=== PATIENT | male | born 1990 | race Caucasian/White ===

== ENCOUNTER 2020-11-30 02:31 | Outpatient (CLI) | payer BC, SELFPAY ==
[2020-12-01 13:15] LABS: COVID-19 RT-PCR UVMMC Result Negative (Negative)
== END 2020-11-30 02:51 ==
PROVIDERS: PCP Family Medicine; Visit Provider Nurse Practitioner
DX: Z20.822 Contact with and (suspected) exposure to COVID-19 (principal)
CPT/HCPCS: U0003

== ENCOUNTER 2022-11-28 09:03 | Emergency (ER) | payer BC, SELFPAY ==
[2022-11-28] VITALS (19 sets, daily range): BP systolic 121–147; BP diastolic 71–90; PULSE 62–88; RESP 13–20; TEMP 36.6–37.2; O2SAT 93–99
--- NOTE | 2022-11-28 09:00 | RT.EKG_ITS ---
APPROVED REPORT Exam: Resting ECG Reason for Exam: chest pain Patient Location: E HR:72 bpm ECG Measurements Heart Rate 72 AXIS DC 141 P 73 QRSd 86 QRS 68 QT 375 T 50 QTc 409 Conclusion Sinus rhythm...normal P axis, V-rate 60- 99
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
[2022-11-28 09:31] LABS: Abs Immature Grans 0.07 10^3/uL (0.0-0.06); Absolute Basophil Count 0.04 10^3/uL (0.0-0.2); Absolute Eosinophil Count 0.31 10^3/uL (0.0-0.7); Absolute Neutrophil Count 10.54 10^3/uL (1.2-6.7); Basophils % 0.3; Eosinophils % 2.2; HCT 45.9 % (40.0-50.0); HGB 15.6 g/dL (13.5-17.5); Immature Grans % 0.5; Lymphocytes % 16.2; MCH 30.5 pg (27.0-33.0); MCV 90 fL (80-95); MPV 8.5 fL (8.0-11.0); Monocytes % 6.4; Neutrophils % 74.4; Platelet Count 355 10^3/uL (130-400); RBC 5.12 10^6/uL (4.36-5.78); RDW 11.5 % (11.8-14.1); RDW-SD 37.9 fL; WBC 14.16 10^3/uL (4.4-10.8)
[2022-11-28 09:35] LABS: Absolute Lymphocyte Count 2.29 10^3/uL (1.2-3.4); Absolute Monocyte Count 0.91 10^3/uL (0.1-0.8)
[2022-11-28] MEDS: Normal Saline - Diluent 50 ML VIAL IJ (09:36)
[2022-11-28] MEDS: Omnipaque 350 MG/ML 500 ML BTL-Imaging package IJ (09:36)
[2022-11-28 09:50] LABS: ALT 74 U/L (16-63); AST 57 U/L (15-37); Albumin 4.2 g/dL (3.4-5.0); Alkaline Phosphatase 67 U/L (46-116); BUN 17 mg/dL (7-18); Bilirubin, Total 0.4 mg/dL (0.2-1.0); CREATININE 1.1 mg/dL (0.70-1.30); Calcium 9.2 mg/dL (8.5-10.1); Chloride 102 mmol/L (98-107); Estimated GFR 92.61 (mL/min/1.73m2); Glucose 118 mg/dL (74-106); Lipase 161 U/L (73-393); Potassium 4.3 mmol/L (3.5-5.1); Sodium 137 mmol/L (136-145); Troponin I < 50 ng/L (<or=60)
[2022-11-28] MEDS: Acetaminophen 500 MG TAB 1000 MG PO (10:40)
== END 2022-11-28 10:53 | disposition home or self-care (01) ==
PROVIDERS: Emergency Provider Emergency Medicine
DX: S39.91XA Unspecified injury of abdomen, initial encounter (principal); S29.9XXA Unspecified injury of thorax, initial encounter; S80.812A Abrasion, left lower leg, initial encounter; R79.89 Other specified abnormal findings of blood chemistry; V43.52XA Car driver injured in collision with other type car in traffic accident, initial encounter; Y92.410 Unspecified street and highway as the place of occurrence of the external cause
CPT/HCPCS: 36415; 74177; 80053; 83690; 93005; 99285; 71260; 84484; 85025; 93010

== ENCOUNTER 2023-08-27 07:38 | Observation (INO) | payer BC, SELFPAY ==
[2023-08-27] VITALS (40 sets, daily range): BP systolic 108–147; BP diastolic 69–89; PULSE 82–127; RESP 2–29; TEMP 36.7–39.3; O2SAT 91–99
--- NOTE | 2023-08-27 07:45 | DI.RAD_ITS ---
Exam(s) XR CHEST 2V PA LATERAL EXAM: XR CHEST 2V PA LATERAL CLINICAL HISTORY: left lateral rib pain, TTP TECHNIQUE: 2D digital imaging was performed. COMPARISON: CT CT CHEST/ABD/PEL W from 11/28/2022 FINDINGS: HEART: Normal size. Aorta: Not dilated. PULMONARY VASCULATURE: Normal. LUNGS: Clear. PLEURAL SPACE: Moderate size left pleural effusion and adjacent atelectasis. Minimal blunting at the right costophrenic angle. No pneumothorax. BONE:Unremarkable for age. IMPRESSION: Moderate size left pleural effusion. DATA REPOSITORY: RADIATION DOSE DELIVERED:
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
[2023-08-27] MEDS: Acetaminophen 500 MG TAB 1000 MG PO (08:03)
[2023-08-27] MEDS: Cyclobenzaprine 10 MG TAB PO (08:04)
[2023-08-27] MEDS: Ketorolac 15 MG/ML VIAL IM (08:04)
[2023-08-27] MEDS: Lidocaine 5% Patch 2 PATCH TP (08:05)
--- NOTE | 2023-08-27 08:15 | DI.CT_ITS ---
Exam(s) CT CHEST/ABD/PEL W EXAM: CT CHEST/ABD/PEL W CLINICAL HISTORY: ? diaphragm rupture on left. TECHNIQUE: Imaging Protocol: Axial computed tomography images with coronal and sagittal reformatted images were created and reviewed CONTRAST MATERIAL: Intravenous: Omnipaque 350 Contrast volume:100 ml Oral: yes COMPARISON: CT CT CHEST/ABD/PEL W from 11/28/2022 CR XR CHEST 2V PA LATERAL from 08/27/2023 FINDINGS: CHEST: Tracheobronchial tree: Patent where visualized. Pulmonary parenchyma: Significant consolidation of left lower lobe with air bronchograms. Pleura: Small left pleural effusion. Lymph nodes: Within normal limits. Aorta: Thoracic portion non-dilated. Heart: Normal size. No pericardial effusion. Bones: Unremarkable for age. No lytic or blastic lesions.No compression fractures. No displaced rib fractures identified. Diaphragm is intact. ABDOMEN and PELVIS: Liver: Normal density. No measurable mass. Gallbladder and biliary tract: No evidence of stones or wall thickening. No biliary dilatation. Pancreas: Normal density, no abnormal calcifications or inflammatory process. Spleen: Normal. Kidneys: Normal size, contour and axis. No radiodense stones or obstructive uropathy. No suspicious m asses seen. Adrenal glands: No masses seen. Aorta: Abdominal portion non-dilated. Mil no atherosclerotic changes. Lymph nodes: Within normal limits. Soft tissues: Unremarkable. Bladder: Unremarkable. Bowel: No obstruction or bowel wall thickening. Peritoneal cavity: No ascites. No focal collection or mesenteric inflammatory response. Bones: Unremarkable for age. Reproductive organs: Within normal limits. IMPRESSION: Left lower lobe consolidation. Small left pleural effusion. Diaphragm is intact. No acute abnormality in the abdomen or pelvis.. RADIATION DOSE DELIVERED: Total DLP DATA REPOSITORY: All CT scans at this facility are submitted to the National Radiology Data Registry (NRDR) Dose Index Registry (DIR) with the [employer] (ACR). RADIATION OPTIMIZATION: All CT scans at this facility use at least one of these dose optimization te chniques: automated exposure control; mA and/or kV adjustment per patient size (includes targeted exa ms where dose is matched to clinical indication); or iterative reconstruction.
--- NOTE | 2023-08-27 08:30 | RT.EKG_ITS ---
APPROVED REPORT Exam: Resting ECG Reason for Exam: short of breath Patient Location: E HR:116 bpm ECG Measurements Heart Rate [address] 131 P 48 QRSd 80 QRS 18 QT 302 T -8 QTc 420 Conclusion Sinus tachycardia...rate> 99
[2023-08-27] MEDS: Ondansetron 4 MG/2 ML VIAL IVP (08:45)
[2023-08-27 08:46] LABS: Source Nasal/Nares
[2023-08-27 08:49] LABS: Abs Immature Grans 0.14 10^3/uL (0.0-0.06); Absolute Eosinophil Count 0.02 10^3/uL (0.0-0.7); Absolute Lymphocyte Count 1.56 10^3/uL (1.2-3.4); Basophils % 0.2; Eosinophils % 0.1; HCT 41.5 % (40.0-50.0); HGB 14.1 g/dL (13.5-17.5); Immature Grans % 0.6; Lymphocytes % 7.2; MCH 30.5 pg (27.0-33.0); MCV 90 fL (80-95); MPV 8.6 fL (8.0-11.0); Monocytes % 8.3; Neutrophils % 83.6; Platelet Count 352 10^3/uL (130-400); RBC 4.62 10^6/uL (4.36-5.78); RDW 11.2 % (11.8-14.1); RDW-SD 36.8 fL; WBC 21.68 10^3/uL (4.4-10.8)
[2023-08-27 08:51] LABS: Absolute Basophil Count 0.04 10^3/uL (0.0-0.2); Absolute Neutrophil Count 18.12 10^3/uL (1.2-6.7)
[2023-08-27 09:12] LABS: ALT 21 U/L (16-63); AST 9 U/L (15-37); Albumin 3.4 g/dL (3.4-5.0); Alkaline Phosphatase 70 U/L (46-116); Amylase 30 U/L (25-115); Anion Gap 10.1 mmol/L (3-11); BUN 13 mg/dL (7-18); CO2 26.9 mmol/L (21.0-32.0); CREATININE 1.4 mg/dL (0.70-1.30); Calcium 9.9 mg/dL (8.5-10.1); Chloride 97 mmol/L (98-107); Estimated GFR 68.91 (mL/min/1.73m2); Glucose 122 mg/dL (74-106); INR 1.1 (0.9-1.1); Lipase 31 U/L (16-77); PTT Activated 33.9 sec (23.6-32.8); Potassium 4.2 mmol/L (3.5-5.1); Prothrombin Time 11.1 sec (9.1-11.1); Sodium 134 mmol/L (136-145); Total Protein 8.8 g/dL (6.4-8.2)
[2023-08-27] MEDS: Normal Saline - Diluent 50 ML VIAL IJ (09:12)
[2023-08-27] MEDS: Omnipaque 350 MG/ML 500 ML BTL-Imaging package IJ (09:13)
[2023-08-27 09:15] LABS: Magnesium 2.2 mg/dL (1.8-2.4); Troponin I < 50 ng/L (<or=60)
[2023-08-27 09:19] LABS: Diff Comment Diff Reviewed; RBC Morphology Normal
[2023-08-27 09:27] LABS: COVID-19 PCR Negative (Negative)
[2023-08-27] MEDS: cefTRIAXone 2 GM/50 ML BAG IVPB (10:32)
[2023-08-27] MEDS: Normal Saline 1,000 ML 1000 ML IV (10:33)
[2023-08-27] MEDS: AZITHROMYCIN 500 MG in Normal Saline 250 ML 250 MG IVPB (11:16)
[2023-08-27 11:36] LABS: Bilirubin Negative (Negative); Blood Negative (Negative); Clarity Clear (Clear); Glucose Negative (Negative); Ketones 15 mg/dL (Negative); Leukocyte Esterase Negative (Negative); Nitrite Negative (Negative); Specific Gravity <= 1.005 (1.005-1.025); Urobilinogen 0.2 mg/dL (Up to 0.2)
[2023-08-27 11:47] LABS: Bacteria Negative HPF (Negative); C & S Indicated? No; Casts 0-2 Fine Granular LPF (Negative); Crystals Few Amorphous HPF (Negative); Epithelial Cells Rare HPF (Negative); Mucus Trace (Negative); RBC Negative HPF (0-2); WBC Negative HPF (0-5)
[2023-08-27 12:31] LABS: Lab Add On Test DONE
[2023-08-27 13:32] LABS: Procalcitonin 0.3 ng/mL
[2023-08-27] MEDS: guaiFENesin 600 MG TABCR PO ×2 (14:00→20:28)
[2023-08-27] MEDS: Acetaminophen 325 MG TAB 650 MG PO ×2 (15:06→20:27)
--- NOTE | 2023-08-27 15:54 | HPE_ITS ---
Date of service: 08/27/23 Time of Service: 15:54 Assessment and Plan Assessment and plan (1) Pneumonia: Status: Acute Assessment and plan: Antibiotics: Ceftriaxone and Azithromycin Guaifenesin Duoneb scheduled (2) Chest pain: Status: Acute Assessment and plan: PRN Ketorolac, morphine, APAP (3) Sepsis: Status: Acute Assessment and plan: blood cultures ordered Antibiotics (4) Pleural effusion: Status: Acute Assessment and plan: IS Vibrapep Pulmonary toilet Will monitor closely (5) Discharge planning issues: Status: Acute Assessment and plan: CM will f/u for new discharge needs, none at this time (6) Encounter for deep vein thrombosis (DVT) prophylaxis: Status: Acute Assessment and plan: lovenox SC History of Present Illness History of Present Illness Chief Complaint: Difficulty breathing and chest pain with inspiration Narrative: This 33yo male ?patient with no reported past medical history presented to the Ed at [facility] today ?with acute back pain. The patient ?reports onset of symptoms 3 days prior while horsing around with the kids. Pain worsened? and he developed night sweats and chills last night. The patient also reports difficulty to take deep breaths or sleep. In the ED the patient had tachycardia and was mildly hypertensive on arrival and the pain waz reproducible to ?back and chest wall tenderness on exam. Treatment with tylenol/toradol/flexeril/lidocaine patch and to get a CXR to evaluate ?for possible rib fracture/pneumothorax was initiated. CXR: radiology read below with pleural effusion. CT was completed and a small left sided pleural effusion with LLL consolidation was found. Remarkable labs were for leukocytosis at 21.6,? Creatinine 1.4,), amylase, lipase, troponin were normal. Morphine, ceftriaxone, azithromycin were given in the ED. The hospitalist was consulted and the patient was admitted to the medical surgical floor for evaluation and management of pneumonia/sepsis and pleural effusion. On the floor the patient report improved pain, having had chills and night sweat and a new onset of fever. The patient mentioned that everyone at home had something but cannot confirm that it was from a respiratory origin. He reports that the pain is still reproducible but much better to his left back and chest. He denies coughing, nausea vomiting diarrhea, abdominal pain or dysuria. The patient reports subsiding neck tenderness, Review of Systems Constitutional Constitutional: Reports daytime sleepiness, Reports difficulty sleeping, Reports excessive sweating, Reports fatigue, Reports lethargy, Reports malaise, Reports night sweats and Reports poor appetite Eyes Eyes: Denies blurry vision ENT Ears, Nose, Mouth, and Throat: Denies dysphagia, Denies vertigo, Denies dizziness, Reports dry mouth and Reports neck pain Cardiovascular Cardiovascular: Denies chest pain, Denies chest pain at rest and Reports dyspnea on exertion Respiratory Respiratory: Denies cough, Denies hemoptysis, Denies excessive phlegm production, Reports pain with cough and Reports dyspnea on exertion Gastrointestinal Gastrointestinal: Denies abdominal pain, Denies belching, Denies dysphagia, Denies dyspepsia and Denies heartburn Genitourinary Genitourinary: Denies urinary frequency, Denies urinary hesitancy and Denies urinary incontinence Musculoskeletal Musculoskeletal: Reports myalgias, Denies muscle weakness and Reports neck pain Neurologic Neurologic: Denies abnormal movements, Denies abnormal speech, Denies confusion, Denies vertigo, Denies dizziness and Denies memory loss Psychiatric Psychiatric: Denies anxiety, Reports change in appetite, Denies confusion and Denies memory loss Endocrine Endocrine: Reports excessive sweating and Reports fatigue Hematologic/Lymphatic Hematologic/Lymphatic: Denies easy bleeding, Denies easy bruising and Denies lymphadenopathy PFSH All Active Problems Encounter for deep vein thrombosis (DVT) prophylaxis (Acute) Discharge planning issues (Acute) Pneumonia (Acute) Chest pain (Acute) Sepsis (Acute) Pleural effusion (Acute) Breath shortness (Acute) Family History (Updated 08/27/23 @ 19:53 by Niki Quach APRN) Father Diabetes Mother Cancer Social History Smoking/Tobacco Use Status: Current-Occasional Tobacco Type: e-cigarettes Smoking risk assessment performed?: Yes Alcohol Intake: current Alcohol Intake frequency: a few times a month Alcohol type: beer Drug use: Never Substance use type: does not use Housing: house Do you feel safe at home: Yes Do you feel safe in your relationship?: Yes Meds Allergies and Home Medications Allergies Allergy/AdvReac Type Severity Reaction Status Date / Time No Known Allergies Allergy Unverified 08/27/23 07:48 Home Medications Medication Instructions Recorded Confirmed Type Unknown [No Known Home Meds] 11/28/22 08/27/23 History Exam Narrative Exam Narrative: Constitutional The patient is lying in bed comfortable and cooperative during the interview. The patient is well groomed without acute distress and has obese body habitus HENMT: Head is atraumatic, normocephalic, no lymphadenopathy. Facial structures with normal appearance, cheeks are flushed Eyes: Well aligned, intact ROM Neck: Normal ROM, no meningeal sign Neuro:alert and oriented to self, person, place,time and situation. No neurological focal deficit, PERRLA on ambient lighting Chest:Chest is symmetrical and normal appearance, tenderness to left pectoral muscle when palpated Resp: Normal respiratory pattern, speaks in full sentences, unlabored , shallow breathing, decreased breath sounds to left lower lung field Cardio: regular rhythm, S1, S2, no murmur, capillary refill<3 sec., bilateral radial and dorsalis pedis pulses are positive, palpable GI: Abdomen is not distended, soft and non tender, bowel sounds are present : Negative Costovertebral angle tenderness, no bladder distension Back/spine/Pelvis: No back tenderness, normal alignment Integumentary: No skin lesions or rash Extremities: strength 5/5 to bilateral lower and upper extremities Psych: RASS 0, congruent mood and normal to flat affect. Results Labs 08/27/23 08:37 08/27/23 08:37 Labs: Laboratory Results - last 24 hr 08/27/23 08/27/23 08/27/23 08:35 08:37 11:20 WBC 21.68 H RBC 4.62 Hgb 14.1 Hct 41.5 MCV 90 MCH 30.5 MCHC 34.0 RDW 11.2 L Plt Count 352 MPV 8.6 Immature Gran % 0.6 Neutrophils % 83.6 Lymphocytes % 7.2 Monocytes % 8.3 Eosinophils % 0.1 Basophils % 0.2 Nucleated RBC % 0.0 Absolute Neutrophils 18.12 H Absolute Lymphocytes 1.56 Absolute Monocytes 1.80 H Absolute Eosinophils 0.02 Absolute Basophils 0.04 RBC Morphology Normal PT 11.1 INR 1.1 APTT 33.9 H Sodium 134 L Potassium 4.2 Chloride 97 L Carbon Dioxide 26.9 Anion Gap 10.1 BUN 13 Creatinine 1.4 H Est GFR (CKD-EPI 2020) 68.91 Glucose 122 H Calcium 9.9 Magnesium 2.2 Total Bilirubin 1.0 AST 9 L ALT 21 Alkaline Phosphatase 70 Troponin I < 50 Total Protein 8.8 H Albumin 3.4 Amylase 30 Lipase 31 Procalcitonin 0.3 Urine Color Yellow Urine Clarity Clear Urine pH 6.0 Ur Specific [place] <= 1.005 Urine Protein 100 H Urine Ketones 15 H Urine Blood Negative Urine Nitrite Negative Urine Bilirubin Negative Urine Urobilinogen 0.2 Ur Leukocyte Esterase Negative Urine RBC Negative Urine WBC Negative Ur Epithelial Cells Rare Urine Crystals Few Amorphous Urine Bacteria Negative Urine Casts 0-2 Fine Granular Urine Mucus Trace Ur Culture Indicated? No Urine Glucose Negative COVID-19 Source Nasal/Nares SARS-CoV-2 (PCR) Negative Add-On Test Request DONE Patient ABO/Rh O Positive Antibody Screen NEGATIVE Last Vital Signs Temp 38.7 C H 08/27/23 15:06 Pulse 98 H 08/27/23 15:05 Resp 18 08/27/23 15:05 BP 121/81 08/27/23 15:05 Pulse Ox 94 08/27/23 15:05 PAWSS Have you Been Recently Intoxicated or Drunk Within the Last 30 days?: No Have you Ever Experienced Previous Episodes of Alcohol Withdrawal?: No Have you ever Experienced Withdrawal Seizures?: No Have you ever Experienced Delirium Tremens(DT)s?: No Have you ever undergone Alcohol Rehabilitation Treatment (i.e, inpt ot outpatient treatment programs)?: No Have you ever Experienced Blackouts?: No Have you ever Combined Alcohol with other Downers within the last 90 days?: No Have you ever Combined Alcohol with any other Substance of Abuse during the last 90 days?: No Result: 0 Time Spent Time spent with Patient: >75 minutes Time was spent: preparing to see the patient(eg.review tests), obtaining and/or reviewing separately otained hiistory, ordering medications,tests, procedures, referring, communicating with other health critical care physician, indepentently interpreting results, counseling the patient and care coordination
[2023-08-27] MEDS: Albuterol/Ipratropium 3 ML UPD VIAL UPD ×2 (16:32→19:30)
[2023-08-27] MEDS: Enoxaparin 40 MG/0.4 ML SYR SC (20:28)
[2023-08-27] MEDS: Ketorolac 15 MG/ML VIAL IVP (20:29)
[2023-08-27] MEDS: Prochlorperazine 10 MG/2 ML VIAL 5 MG IVP (20:29)
[2023-08-27 21:28] LABS: COVID-19 PCR Negative (Negative); Influenza A PCR Negative (Negative); Influenza B PCR Negative (Negative); RSV PCR Negative (Negative)
[2023-08-27 21:30] LABS: Source NASOPHARYNX
[2023-08-27 23:03] LABS: Legionella Ag Detection Urine Negative (Negative)
[2023-08-28] VITALS (13 sets, daily range): BP systolic 117–158; BP diastolic 75–110; PULSE 86–116; RESP 2–24; TEMP 36.2–38.5; O2SAT 93–100
[2023-08-28 07:19] LABS: Abs Immature Grans 0.06 10^3/uL (0.0-0.06); Absolute Lymphocyte Count 1.56 10^3/uL (1.2-3.4); Basophils % 0.2; Eosinophils % 0.5; HCT 38.7 % (40.0-50.0); HGB 12.9 g/dL (13.5-17.5); Immature Grans % 0.4; Lymphocytes % 9.5; MCH 30.7 pg (27.0-33.0); MCHC 33.3 % (32.0-36.0); MCV 92 fL (80-95); MPV 9.1 fL (8.0-11.0); Monocytes % 8.7; Neutrophils % 80.7; Platelet Count 373 10^3/uL (130-400); RDW 11.2 % (11.8-14.1); RDW-SD 37.9 fL; WBC 16.37 10^3/uL (4.4-10.8)
[2023-08-28 07:22] LABS: Absolute Basophil Count 0.03 10^3/uL (0.0-0.2); Absolute Eosinophil Count 0.08 10^3/uL (0.0-0.7); Absolute Monocyte Count 1.42 10^3/uL (0.1-0.8); Absolute Neutrophil Count 13.21 10^3/uL (1.2-6.7)
[2023-08-28 07:31] LABS: Anion Gap 11.2 mmol/L (3-11); BUN 12 mg/dL (7-18); CO2 26.8 mmol/L (21.0-32.0); CREATININE 1.1 mg/dL (0.70-1.30); Calcium 9.4 mg/dL (8.5-10.1); Chloride 100 mmol/L (98-107); Estimated GFR 92.04 (mL/min/1.73m2); Glucose 102 mg/dL (74-106); Sodium 138 mmol/L (136-145)
[2023-08-28] MEDS: guaiFENesin 600 MG TABCR PO ×2 (07:54→19:24)
[2023-08-28] MEDS: cefTRIAXone 2 GM/50 ML BAG IVPB (07:54)
[2023-08-28] MEDS: Acetaminophen 325 MG TAB 650 MG PO ×2 (07:54→15:08)
[2023-08-28] MEDS: Albuterol/Ipratropium 3 ML UPD VIAL UPD ×4 (08:13→19:33)
[2023-08-28] MEDS: AZITHROMYCIN 500 MG in Normal Saline 250 ML 250 MG IVPB (09:16)
--- NOTE | 2023-08-28 10:35 | W.PM.PROGNOT ---
Date of Service Date of service: 08/28/23 Time of Service: 10:36 Assessment and Plan Assessment and plan (1) Pneumonia: Status: Acute Assessment and plan: Will continue antibiotics: Ceftriaxone and Azithromycin Guaifenesin and cough syrup Duoneb scheduled Increased anxiety versus jitters; Lorazepam oral X1, melatonin at HS (2) Sepsis: Status: Acute Assessment and plan: blood cultures pending, febrile overnight Antibiotics (3) Chest pain: Status: Acute Assessment and plan: Will continue scheduled Ketorolac, PRN morphine and APAP (4) Pleural effusion: Status: Acute Assessment and plan: IS Vibrapep Pulmonary toilet Will monitor closely (5) Encounter for deep vein thrombosis (DVT) prophylaxis: Status: Acute Assessment and plan: lovenox SC (6) Discharge planning issues: Status: Acute Assessment and plan: CM will f/u for new discharge needs, none at this time Discussed with Dr. Cruz Subjective Subjective Patient reports: no new complaints, feels better, still having pain (The patient reports that pain is well manage with current pain medicine regimen), pain is less (Pain was /10 and /10 after pain medicine administration), tolerating liquids well, tolerating a regular diet, voiding w/o difficulty, flatus, bowel movement, shortness of breath and afebrile; denies diarrhea, nausea or vomiting Exam Narrative Exam Narrative: Constitutional The patient is lying in bed comfortable and cooperative during the interview. The patient is well groomed without acute distress and has obese body habitus HENMT: Head is atraumatic, normocephalic, no lymphadenopathy. Facial structures with normal appearance, cheeks are flushed Eyes: Well aligned, intact ROM Neck: Normal ROM, no meningeal sign Neuro:alert and oriented to self, person, place,time and situation. No neurological focal deficit, PERRLA on ambient lighting Chest:Chest is symmetrical and normal appearance, tenderness and twitching to left pectoral muscle when palpated Resp: Normal respiratory pattern, speaks in full sentences, unlabored , shallow breathing, decreased breath sounds, fine crackles might be present to left lower lung field Cardio: regular rhythm, S1, S2, no murmur, capillary refill<3 sec., bilateral radial and dorsalis pedis pulses are positive, palpable GI: Abdomen is not distended, soft and non tender, bowel sounds are present : Negative Costovertebral angle tenderness, no bladder distension Back/spine/Pelvis: No back tenderness, normal alignment Integumentary: No skin lesions or rash Extremities: strength 5/5 to bilateral lower and upper extremities Psych: RASS 0, congruent mood and normal affect. Objective Last Vital Signs Temp 36.2 C L 08/28/23 07:45 Pulse 106 H 08/28/23 08:23 Resp 24 08/28/23 08:23 BP 158/110 H 08/28/23 07:45 Pulse Ox 100 08/28/23 08:23 Laboratory Results - last 24 hr 08/27/23 08/27/23 08/27/23 08:37 11:20 20:35 WBC RBC Hgb Hct MCV MCH MCHC RDW Plt Count MPV Immature Gran % Neutrophils % Lymphocytes % Monocytes % Eosinophils % Basophils % Nucleated RBC % Absolute Neutrophils Absolute Lymphocytes Absolute Monocytes Absolute Eosinophils Absolute Basophils Sodium Potassium Chloride Carbon Dioxide Anion Gap BUN Creatinine Est GFR (CKD-EPI 2020) Glucose Calcium Procalcitonin 0.3 Urine Color Yellow Urine Clarity Clear Urine pH 6.0 Ur Specific [place] <= 1.005 Urine Protein 100 H Urine Ketones 15 H Urine Blood Negative Urine Nitrite Negative Urine Bilirubin Negative Urine Urobilinogen 0.2 Ur Leukocyte Esterase Negative Urine RBC Negative Urine WBC Negative Ur Epithelial Cells Rare Urine Crystals Few Amorphous Urine Bacteria Negative Urine Casts 0-2 Fine Granular Urine Mucus Trace Ur Culture Indicated? No Urine Glucose Negative COVID-19 Source NASOPHARYNX SARS-CoV-2 (PCR) Negative Influenza Type A (PCR) Negative Influenza Type B (PCR) Negative RSV (PCR) Negative Add-On Test Request DONE 08/28/23 06:30 WBC 16.37 H RBC 4.20 L Hgb 12.9 L Hct 38.7 L MCV 92 MCH 30.7 MCHC 33.3 RDW 11.2 L Plt Count 373 MPV 9.1 Immature Gran % 0.4 Neutrophils % 80.7 Lymphocytes % 9.5 Monocytes % 8.7 Eosinophils % 0.5 Basophils % 0.2 Nucleated RBC % 0.0 Absolute Neutrophils 13.21 H Absolute Lymphocytes 1.56 Absolute Monocytes 1.42 H Absolute Eosinophils 0.08 Absolute Basophils 0.03 Sodium 138 Potassium 4.0 Chloride 100 Carbon Dioxide 26.8 Anion Gap 11.2 H BUN 12 Creatinine 1.1 Est GFR (CKD-EPI 2020) 92.04 Glucose 102 Calcium 9.4 Procalcitonin Urine Color Urine Clarity Urine pH Ur Specific [place] Urine Protein Urine Ketones Urine Blood Urine Nitrite Urine Bilirubin Urine Urobilinogen Ur Leukocyte Esterase Urine RBC Urine WBC Ur Epithelial Cells Urine Crystals Urine Bacteria Urine Casts Urine Mucus Ur Culture Indicated? Urine Glucose COVID-19 Source SARS-CoV-2 (PCR) Influenza Type A (PCR) Influenza Type B (PCR) RSV (PCR) Add-On Test Request PAWSS Have you Been Recently Intoxicated or Drunk Within the Last 30 days?: No Have you Ever Experienced Previous Episodes of Alcohol Withdrawal?: No Have you ever Experienced Withdrawal Seizures?: No Have you ever Experienced Delirium Tremens(DT)s?: No Have you ever undergone Alcohol Rehabilitation Treatment (i.e, inpt ot outpatient treatment programs)?: No Have you ever Experienced Blackouts?: No Have you ever Combined Alcohol with other Downers within the last 90 days?: No Have you ever Combined Alcohol with any other Substance of Abuse during the last 90 days?: No Result: 0 Time Spent with Patient Time Spent with Patient: 35-49 minutes Time was spent: preparing to see the patient(eg.review tests), ordering medications,tests, procedures, referring, communicating with other health childcare center director, indepentently interpreting results, counseling the patient and care coordination
--- NOTE | 2023-08-28 14:50 | PDOC.CMIN ---
Date of service: 08/28/23 Time of Service: 14:50 Care Management Initial Assmt Initial Assessment REASON FOR HOSPITALIZATION:: Pneumonia PREVIOUS FUNCTIONAL STATUS/SOCIAL/FAMILY SUPPORTS:: Jesus lives in [place], alone. His sister lives next door to him. 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 He is independent at baseline. CURRENT FUNCTIONAL STATUS:: Jesus was lying in bed when CM met with him. He stated that he is feeling much better today. He reported that per provider, he will likely be hospitalized for a couple more days for IV antibiotics. CM stated that his medical need will be assessed daily, and once he is medically cleared, he will be discharged home. He is agreeable with this plan. CM will continue to follow. ADVANCE DIRECTIVES:: None on file; CM will offer forms. Has patient been provided with info about the portal/API?: Yes Did the patient sign up for the portal?: Yes CODE STATUS:: Full Code INSURANCE COVERAGE / FINANCIAL ISSUES:: BC/BS CURRENT HOME/COMMUNITY SERVICES/EQUIPMENT:: None. PRIMARY CARE PHYSICIAN:: Unknown; may require hospital discharge follow up with transformation lead provider. POTENTIAL DISCHARGE NEEDS:: Follow up appointments. PATIENT/FAMILY EDUCATION NEEDS:: Review discharge instructions and limitations, discussion of self care needs including ask me three. ANTICIPATED BARRIERS TO DISCHARGE:: None identified. TRANSPORTATION:: Via private vehicle by his sister. PLAN:: Anticipate Jesus will return home once medically cleared. His sister or a friend will drive him home via private vehicle. He will follow up with the transformation lead provider (Sophy Oneill, [facility]), and his discharge plan of care. CM will continue to follow. PFSH All Active Problems Encounter for deep vein thrombosis (DVT) prophylaxis (Acute) Discharge planning issues (Acute) Pneumonia (Acute) Chest pain (Acute) Sepsis (Acute) Pleural effusion (Acute) Breath shortness (Acute) Family History (Updated 08/27/23 @ 19:53 by Niki Quach APRN) Father Diabetes Mother Cancer Social History Smoking/Tobacco Use Status: Current-Occasional Tobacco Type: e-cigarettes Smoking risk assessment performed?: Yes Alcohol Intake: current Alcohol Intake frequency: a few times a month Alcohol type: beer Drug use: Never Substance use type: does not use Housing: house Do you feel safe at home: Yes Do you feel safe in your relationship?: Yes
[2023-08-28] MEDS: LORazepam 1 MG TAB PO (16:22)
[2023-08-28] MEDS: Pantoprazole 40 MG TABCR PO (16:22)
[2023-08-28] MEDS: Enoxaparin 40 MG/0.4 ML SYR SC (19:24)
[2023-08-28] MEDS: Melatonin 3 MG TAB 6 MG PO (21:58)
[2023-08-28] MEDS: Normal Saline Flush 10 ML SYR IVP (22:02)
[2023-08-28] MEDS: Ketorolac 15 MG/ML VIAL IVP (22:03)
[2023-08-29 03:00] VITALS: TEMP 37.9
[2023-08-29 07:15] VITALS: BP 135/82; PULSE 98; RESP 18; TEMP 37.8; O2SAT 93
[2023-08-29] MEDS: Pantoprazole 40 MG TABCR PO (07:28)
[2023-08-29] MEDS: cefTRIAXone 2 GM/50 ML BAG IVPB (07:34)
[2023-08-29 07:35] LABS: Abs Immature Grans 0.03 10^3/uL (0.0-0.06); Absolute Basophil Count 0.04 10^3/uL (0.0-0.2); Absolute Eosinophil Count 0.27 10^3/uL (0.0-0.7); Absolute Lymphocyte Count 1.16 10^3/uL (1.2-3.4); Absolute Monocyte Count 0.97 10^3/uL (0.1-0.8); Absolute Neutrophil Count 7.33 10^3/uL (1.2-6.7); Basophils % 0.4; Eosinophils % 2.8; HCT 35.9 % (40.0-50.0); HGB 12.1 g/dL (13.5-17.5); Immature Grans % 0.3; Lymphocytes % 11.8; MCH 30.4 pg (27.0-33.0); MCHC 33.7 % (32.0-36.0); MCV 90 fL (80-95); MPV 9.1 fL (8.0-11.0); Monocytes % 9.9; Neutrophils % 74.8; Platelet Count 373 10^3/uL (130-400); RBC 3.98 10^6/uL (4.36-5.78); RDW 11.1 % (11.8-14.1); RDW-SD 37.1 fL
[2023-08-29 08:06] LABS: Anion Gap 10.6 mmol/L (3-11); BUN 11 mg/dL (7-18); CO2 25.4 mmol/L (21.0-32.0); Calcium 9.3 mg/dL (8.5-10.1); Chloride 101 mmol/L (98-107); Estimated GFR 103.19 (mL/min/1.73m2); Glucose 100 mg/dL (74-106); Potassium 3.5 mmol/L (3.5-5.1); Sodium 137 mmol/L (136-145)
[2023-08-29] MEDS: AZITHROMYCIN 500 MG in Normal Saline 250 ML 250 MG IVPB (08:16)
[2023-08-29] MEDS: guaiFENesin 600 MG TABCR PO (08:18)
[2023-08-29 08:24] VITALS: PULSE 103; RESP 18; RESP 2; RESP 3; RESP 7; O2SAT 93
[2023-08-29] MEDS: Albuterol/Ipratropium 3 ML UPD VIAL UPD ×2 (08:24→11:54)
[2023-08-29 08:37] VITALS: PULSE 111; RESP 18; RESP 2; RESP 3; RESP 7; RESP 9; O2SAT 95
--- NOTE | 2023-08-29 11:06 | PDOC.CMDIS ---
Date of service: 08/29/23 Time of Service: 11:06 LACE Index Scoring Tool Questions: Length of Stay (in days): 2 Was the patient admitted via the E.D.?: Yes E.D. Visits: 1 Answers: Total Score: 6 Risk of Readmission: Low Risk Care Management Discharge Plan Reason for Hospitalization: Pneumonia Discharge Plan: Jesus will return home today with no new services. His friend will drive him home via private vehicle. He will follow up with the weapons system instrument mechanic provider, at [facility], and discharge plan of care. Patient/Family Education Needs: Review discharge instructions and limitations, discussion of self care needs including ask me three.
--- NOTE | 2023-08-29 11:26 | W.PM.DS.N ---
Date of service: 08/29/23 Time of Service: 11: DS: Diagnosis Discharge Diagnosis (1) Pneumonia: Status: Acute (2) Sepsis: Status: Acute (3) Chest pain: Status: Acute (4) Pleural effusion: Status: Acute Discharge Plan Disposition Patient Disposition: Home Condition: Stable Discharge Details Reason For Visit: Pneumonia Admit Date/Time: 08/27/23 11:05 Admit Provider: Quincy Cruz Attending Provider: Quincy Cruz Primary Care Provider: Unknown,Unknown Hospital Course Hospital Course: This is a 33-year-old male patient no significant past medical history who presented to the emergency department with complaints of shortness of breath and reproducible chest pain that he initially was attributing to a wrestling event he had with his kids 3 days prior. His work-up did show a left lower lobe consolidation with small pleural effusion. He did admit to upper respiratory symptoms prior to this episode. His vital signs showed slight tachycardia in the 110s he received IV fluids and IV antibiotics including ceftriaxone and azithromycin and was admitted to hospitalist services for further monitoring. While on MedSurg he remained hemodynamically stable no fever no hypoxia he was eating and drinking and felt like his symptoms were improving. He was able to raise sputum. As he has remained hemodynamically stable with no oxygen requirements and is eating and drinking it is reasonable to discharge him home on oral antibiotics to complete a 5-day course. He will follow-up with his primary care provider outpatient or return sooner for new or worsening symptoms discharge discussed with Dr. Cruz Home Meds and New Rx's Prescriptions: New cefpodoxime 200 mg tablet 200 mg PO BID Qty: 4 0RF Rx Instructions: must administer with a meal/food, start on 08/30 azithromycin [Zithromax] 500 mg tablet 500 mg PO DAILY Qty: 2 0RF Rx Instructions: start on 08/30/2023 guaifenesin [Mucinex] 600 mg tablet extended release 12hr 600 mg PO BID Qty: 10 0RF Discharge Instructions Instructions: Pneumonia (DC) Additional Instructions: take antibiotics as prescribed even if you feel better continue to cough and deep breath and use incentive spirometer until symptoms resolved. Stand Alone Forms: Nursing Discharge Form Referrals: Loraine Sofia [NURSE PRACTITIONER] - 09/13/23 9:45 am Unknown,Unknown [Primary Care Provider] - Activity:: Activity as Tolerated Equipment/Supplies:: No Equipment Needed Diet:: As Tolerated Discharge Orders Discharge Orders: Discharge Order (Routine); Ordered 08/29/23 Ordered By: Dee Dee Arreaga Discharge Data Discharge Date/Time-TO BE ENTERED AT DEPARTURE: 08/29/23 13:03 Discharge Comment: dc home DS: Summary Time Spent with Patient providing and/or coordinating discharge services: Less than 30 minutes Status at Discharge Functional status at discharge: independent ambulation Overall status at discharge: patient is back to baseline Mental Status: mental status grossly normal Speech and Movement: speech and movement normal Mood: congruent mood Affect: normal affect Exam Const General: cooperative, comfortable and no acute distress Nutritional Appearance: average body habitus Orientation: alert, awake and oriented x3 HENMT Head: normal to inspection, normocephalic and atraumatic Mouth: oral mucosae normal Chest Chest: normal inspection of the chest Resp Effort & Inspection: normal respiratory effort Auscultation: clear to auscultation bilaterally, diminished lung sounds on the left in the lower lung sánchez, no rhonchi and no wheezes Cardio Rate: regular rate Rhythm: regular rhythm GI Inspection: normal to inspection Palpation: soft Auscultation: normal bowel sounds Skin General skin exam: no rashes or lesions noted Neuro General: patient alert, patient awake and patient oriented x3 Extrem General: normal to inspection and full ROM Psych Mental Status: mental status grossly normal Speech and Movement: speech and movement normal Mood: congruent mood Affect: normal affect DS: Data Vitals/I&O Vitals and I&O: Vital Signs Temperature 37.8 C H 08/29/23 07:15 Temperature Source Tympanic 08/29/23 07:15 Pulse 111 H 08/29/23 08:37 Pulse Rhythm Regular 08/29/23 09:09 Pulse 86 08/27/23 12:29 Respiratory Rate 18 08/29/23 08:37 Respiratory Effort Normal, Non-Labored 08/29/23 09:09 Respiratory Depth Normal 08/29/23 09:09 Respiratory Pattern Normal 08/29/23 09:09 Blood Pressure 135/82 08/29/23 07:15 Blood Pressure Mean 80 08/27/23 12:29 Blood Pressure Position Sitting 08/27/23 07:54 Pulse Oximetry 95 08/29/23 08:37 Oxygen Delivery Method Room Air 08/29/23 08:24 Oxygen Flow Rate 0 08/29/23 08:24 Pain Level 0 08/28/23 23:02 Comment head ache 08/29/23 07:15 Intake & Output 08/28/23 08/28/23 08/29/23 11:59 23:59 11:59 Intake Total 1540 / 1830 290 / 1830 350 / 350 Output Total 300 / 300 Balance 1240 / 1530 290 / 1530 350 / 350 Weight 93.1 kg Intake: IV 1300 / 1350 50 / 1350 350 / 350 Oral 240 / 480 240 / 480 Output: Urine 300 / 300 Other: Urine Color Yellow Urine Appearance Clear Clear Clear Comment independent independent pT stated they voided 4x times throughout the night, last time around 6a Voiding Methods Toilet Toilet Toilet Data Completed and Pending Labs on day of discharge: Labs from last 24 hours 08/29/23 08/27/23 06:22 11:20 WBC 9.80 RBC 3.98 L Hgb 12.1 L Hct 35.9 L MCV 90 MCH 30.4 MCHC 33.7 RDW 11.1 L Plt Count 373 MPV 9.1 Immature Gran % 0.3 Neutrophils % 74.8 Lymphocytes % 11.8 Monocytes % 9.9 Eosinophils % 2.8 Basophils % 0.4 Nucleated RBC % 0.0 Absolute Neutrophils 7.33 H Absolute Lymphocytes 1.16 L Absolute Monocytes 0.97 H Absolute Eosinophils 0.27 Absolute Basophils 0.04 Sodium 137 Potassium 3.5 Chloride 101 Carbon Dioxide 25.4 Anion Gap 10.6 BUN 11 Creatinine 1.0 Est GFR (CKD-EPI 2020) 103.19 Glucose 100 Calcium 9.3 Urine Legionella Ag Negative Preliminary micro results at discharge 08/27/23 16:40 Sputum Culture - Preliminary Sputum Normal Ana 08/27/23 20:02 Blood Culture - Preliminary Blood NO GROWTH 24 HOURS 08/27/23 19:54 Blood Culture - Preliminary Blood NO GROWTH 24 HOURS PFSH All Active Problems Encounter for deep vein thrombosis (DVT) prophylaxis (Acute) Discharge planning issues (Acute) Pneumonia (Acute) Chest pain (Acute) Sepsis (Acute) Pleural effusion (Acute) Breath shortness (Acute) Family History (Updated 08/27/23 @ 19:53 by Niki Quach APRN) Father Diabetes Mother Cancer Social History Smoking/Tobacco Use Status: Current-Occasional Tobacco Type: e-cigarettes Smoking risk assessment performed?: Yes Alcohol Intake: current Alcohol Intake frequency: a few times a month Alcohol type: beer Drug use: Never Substance use type: does not use Housing: house Do you feel safe at home: Yes Do you feel safe in your relationship?: Yes Time Spent with Patient Time Spent with Patient: <45 minutes Time was spent: preparing to see the patient(eg.review tests), obtaining and/or reviewing separately otained hiistory, ordering medications,tests, procedures, indepentently interpreting results and counseling the patient
[2023-08-29 11:54] VITALS: PULSE 95; RESP 18; RESP 2; RESP 9; O2SAT 99
[2023-08-29 11:59] VITALS: PULSE 94; RESP 16; RESP 2; RESP 9; O2SAT 99
[2023-08-29 16:25] LABS: Streptococcus Pneumoniae Ag, U Negative (Negative)
[2023-08-31 16:54] LABS: Mycoplasma Pneumoniae PCR Negative (Negative); Specimen source sputum
== END 2023-08-29 13:03 | disposition home or self-care (01) ==
LOC: ER 11:59 → MS 12:47
PROVIDERS: Nurse Practitioner Acute Care; Admitting Provider Internal Medicine; Emergency Provider Student in an Organized Health Care Education/Training Program; Visit Provider Internal Medicine
DX: A41.9 Sepsis, unspecified organism (principal); J18.9 Pneumonia, unspecified organism; R07.89 Other chest pain; J90 Pleural effusion, not elsewhere classified; M54.9 Dorsalgia, unspecified; D72.829 Elevated white blood cell count, unspecified; F17.290 Nicotine dependence, other tobacco product, uncomplicated
CPT/HCPCS: 00123; 36415; 74177; 80048; 80053; 83690; 84145; 86850; 86900; 86901; 87040; 87449; 87635; 87637; 93005; 94640; 96365; 96368; 96375; 99285; J1650; 71046; 71260; 81003; 81015; 82150; 83735; 84484; 85025; 85610; 85730; 87070; 87205; 87581; 87899; 93010; 94667; 94668; 94760; 99223; 99233; 99238; G0378; J0456; J0780; J1885; J2405; J7620

== ENCOUNTER → 2023-09-17 00:30 | Outpatient (CLI) | payer BC, SELFPAY ==
--- NOTE | 2023-09-17 | DI.RAD_ITS ---
Exam(s) XR CHEST 2V PA LATERAL EXAM: XR CHEST 2V PA LATERAL CLINICAL HISTORY: J90,Z87.01 Pleural Effusion,left,HX of Pneumonia TECHNIQUE: 2D digital imaging was performed. COMPARISON: CR XR CHEST 2V PA LATERAL from 08/27/2023 FINDINGS: HEART: Normal size. Aorta: Not dilated. PULMONARY VASCULATURE: Normal. LUNGS: Linear density left lower lobe consistent with scarring. Lungs otherwise clear. PLEURAL SPACE: No pleural effusion or pneumothorax. BONE:Unremarkable for age. IMPRESSION: No acute abnormality. DATA REPOSITORY: RADIATION DOSE DELIVERED:
== END ==
PROVIDERS: Visit Provider Nurse Practitioner Family
DX: J90 Pleural effusion, not elsewhere classified (principal); Z87.01 Personal history of pneumonia (recurrent)
CPT/HCPCS: 71046